=== PATIENT | female | born 1995 | race African-American/Black ===

== ENCOUNTER 2022-11-25 07:56 | Emergency (ER) | payer MEDICAID ==
[~2022-11-25] VITALS: Ht 167.6 cm; Wt 96.0 kg
[2022-11-25 08:16] VITALS: BP 126/57
[2022-11-25] MEDS ORDERED: LEVE1000 MT (09:14)
== END 2022-11-25 09:44 | disposition home or self-care (01) ==
LOC: ER 07:56
DX: Z76.0 Encounter for issue of repeat prescription (principal); G40.909 Epilepsy, unspecified, not intractable, without status epilepticus; F20.9 Schizophrenia, unspecified; F31.9 Bipolar disorder, unspecified; Z86.718 Personal history of other venous thrombosis and embolism; Z86.711 Personal history of pulmonary embolism; Z79.01 Long term (current) use of anticoagulants; Z88.5 Allergy status to narcotic agent
CPT/HCPCS: 99281